=== PATIENT | male | born 1970 | race Caucasian/White ===

== ENCOUNTER 2018-01-15 10:10 | Day surgery (SDC) | payer MEDICAID ==
[~2018-01-15] VITALS: Ht 182.9 cm; Wt 87.1 kg
--- NOTE | ~2018-01-15 | OP ---
PATIENT NAME: ROSEMARIE DAVE MEDICAL RECORD: [id number] :70 [facility] DATE: SURGEON: RANDELL GOODWIN MD DATE OF OPERATION: 01/15/2018 PREOPERATIVE DIAGNOSES: Nasal obstruction, septal deviation, bilateral inferior turbinate hypertrophy. POSTOPERATIVE DIAGNOSES: Nasal obstruction, septal deviation, bilateral inferior turbinate hypertrophy. PROCEDURES: Septoplasty and bilateral inferior turbinate reduction. SURGEON: Randell Goodwin MD ANESTHESIA: General orotracheal. BLOOD LOSS: Less than 5 cc. SPECIMENS: Portion of the inferior turbinate. COMPLICATIONS: None. NASAL PACKING: [place] splints bilaterally with mupirocin ointment. DISPOSITION: Recovery in stable. PROCEDURE NOTE: He was brought to the operating room, placed in the supine position, sedated and intubated by anesthesia. Eyes were taped. Head drapes were applied. He was positioned for septoplasty. His nose had already been decongested with Afrin. Both inferior turbinates and septum were injected with a total of 1.5 cc of 1% lidocaine with epinephrine. He was prepped and draped in usual sterile fashion. Two Afrin pledgets were placed in each side of the nose. After waiting for decongestion, the pledgets were removed. A right-sided [place] incision was made and ipsilateral mucoperichondrial flap was made over really prominent bony spur of the right maxillary spine. This was isolated and removed with a chisel. A bony spur on the posterior septum was isolated. Scissors was used to make a cut above and below it and remove this bony spur as well. This allowed the septum to fall back flat into the midline. The inferior turbinates were medialized with a freer. [place] was used to remove the inferior bony portion of the turbinates. Suction cautery on a setting of 25 was used to stop any bleeding and then both outfractured with a Lampe elevator. The [place] incision was closed with interrupted 4-0 chromic. The nasopharynx was suctioned. Both sides of the nose were examined with good airway on both sides. [place] splints with mupirocin ointment were placed bilaterally and sutured through the anterior membranous septum with 2-0 Prolene on a Andrei needle. He was awakened, extubated, and transported to recovery in good condition. No complications. TRANSINT:[id number] Voice Confirmation ID: [id number] DOCUMENT ID: [id number] OPERATIVE REPORT [id number] ROSEMARIE DAVE ERIC MD at 1711 CC: [id number] DICTATION DATE: 01/15/18 165 FORM PRESSER: 01/15/18 1950 [facility] 01/15/18 [place] [id number] [place] [id number]
--- NOTE | ~2018-01-15 | HP ---
PATIENT: ROSEMARIE DAVE MEDICAL RECORD: [id number] ACCOUNT: [id number] LOCATION:[facility] : 70 ADMISSION DATE: 01/15/18 HISTORY AND PHYSICAL EXAMINATION PREOPERATIVE HISTORY AND PHYSICAL HISTORY OF PRESENT ILLNESS: Mr. Dave is 47. He has been having problems with nasal obstruction, has been refractory to medical management. He has been tested for allergies. He has been admitted for septoplasty and bilateral inferior turbinate reduction. PAST MEDICAL HISTORY: Otherwise negative. PAST SURGICAL HISTORY: Includes a tonsillectomy in 1989. CURRENT MEDICATIONS: Flonase. ALLERGIES: SULFA. PHYSICAL EXAMINATION: GENERAL: Healthy-appearing, developmentally normal. FACE: Normal, symmetric, no lesions. EYES: Sclerae and conjunctivae are normal. EARS: Canals and TMs are normal. NOSE: He has septal deviation with a big spur on the right side of the nose, large inferior turbinates fill the entire nasal cavity. No masses, polyps or drainage. ORAL CAVITY AND OROPHARYNX: Tongue protrudes in midline. Palate is normal. NECK: No masses, no adenopathy. CHEST: Clear. CARDIOVASCULAR: Regular rate and rhythm, no murmur. EXTREMITIES: Normal. IMPRESSION: Nasal obstruction, turbinate hypertrophy, septal deviation, refractory to medical management. PLAN: Septoplasty and bilateral inferior turbinate reduction. TRANSINT:[id number] Voice Confirmation ID: [id number] DOCUMENT ID: [id number] RANDELL TURNER MD at 1111 CC: [id number] DICTATION DATE: 01/02/18 1004 DISCHARGING MACHINE OPERATOR: 01/02/18 1023 [address] [place] [id number] [place] [address]
[2018-01-15 12:40] VITALS: BP 138/81; Ht 182.9 cm; Wt 87.1 kg
[2018-01-15] MEDS ORDERED: HYDROCODON-ACE1 EAC7 PO (18:00)
== END 2018-01-15 18:40 | disposition home or self-care (01) ==
LOC: D.OPS 10:10 → D.PAN 14:00 → D.OPS 18:40
DX: J34.2 Deviated nasal septum (principal); J34.89 Other specified disorders of nose and nasal sinuses; J34.3 Hypertrophy of nasal turbinates; Z01.812 Encounter for preprocedural laboratory examination

== ENCOUNTER → 2019-09-05 09:56 | Outpatient (CLI) | payer MEDICAID ==
[2018-01-15 12:40] VITALS: BMI 26.1
[~2019-09-05 09:56] MED LIST: HYDROCODON-ACE1 EAC7 PO
== END | disposition home or self-care (01) ==
LOC: D.US 09:56
PROVIDERS: ATTEND Family Medicine
DX: R10.11 Right upper quadrant pain (principal)

== ENCOUNTER → 2019-11-02 16:00 | Outpatient (CLI) | payer MEDICAID ==
[2018-01-15 12:40] VITALS: BMI 26.1
[2019-11-02 18:56] LABS: BASOPHILS 0.4 % (0-2); EOSINOPHILS 1.4 % (0-7); HEMATOCRIT 48.2 % (42.0-54.0); HEMOGLOBIN 16.2 g/dL (13.5-17.5); IMMATURE GRANULOCYTES 0.2 % (0-5); LYMPHOCYTES 31.2 % (15-50); MCH 32.7 pg (26.0-34.0); MCHC 33.6 g/dL (31.0-37.0); MCV 97.2 fL (80.0-100.0); MEAN PLATELET VOLUME 10.5 fL (7.4-10.4); MONOCYTES 8.4 % (2-11); NEUTROPHILS 58.4 % (40-80); PLATELET COUNT 230 10x3/uL (130-400); RBC 4.96 10x6/uL (4.20-6.10); WBC 5.7 10x3/uL (4.8-10.8)
[2019-11-02 19:20] LABS: ALKALINE PHOSPHATASE 50 U/L (30-120); ALT (SGPT) 94 U/L (10-68); BILIRUBIN - TOTAL 0.44 mg/dL (0.2-1.3); CALC OSMOLALITY 283 mosm/kg (275-300); CALCIUM 8.9 mg/dL (8.5-10.1); CARBON DIOXIDE 30.4 mmol/L (21.0-32.0); CHLORIDE - SERUM 103 mmol/L (98-107); CKMB 3.6 U/L (0.0-3.6); CREATINE KINASE 268 UL (21-232); CREATININE - SERUM 1.3 mg/dL (0.6-1.3); GLUCOSE 102 mg/dL (74-106); POTASSIUM - SERUM 3.9 mmol/L (3.5-5.1); PROTEIN - SERUM 7.1 g/dL (6.4-8.2); SODIUM 142 mmol/L (136-145); THYROID STIMULATING HORMONE 1.89 uIU/mL (0.36-3.74); TROPONIN-I < 0.017 ng/mL (0.000-0.060); UREA NITROGEN 15 mg/dL (7-18); eGFR NON AFRICAN AMERICAN 62 mL/min (90-120)
== END | disposition home or self-care (01) ==
LOC: D.LABREF 16:00
DX: R07.9 Chest pain, unspecified (principal)